=== PATIENT | female | born 2005 | race Two or more races ===

== ENCOUNTER 2024-04-27 01:26 | Emergency (ER) | payer MEDICAID ==
[~2024-04-27] VITALS: Ht 144.8 cm; Wt 81.8 kg
[2024-04-27 01:50] VITALS: TEMP 97.8
[2024-04-27] MEDS: LORazepam 2 MG/ML VIAL IM ONE (03:06)
[2024-04-27 03:56] VITALS: BP 128/70; PULSE 107; RESP 16
== END 2024-04-27 03:57 | disposition home or self-care (01) ==
LOC: EMS 01:26
DX: F41.9 Anxiety disorder, unspecified (principal); T40.715A Adverse effect of cannabis, initial encounter; F12.90 Cannabis use, unspecified, uncomplicated; Y92.89 Other specified places as the place of occurrence of the external cause
CPT/HCPCS: 99283; 96372; J2060

== ENCOUNTER 2024-06-06 04:22 | Emergency (ER) | payer MEDICAID ==
[~2024-06-06] VITALS: Ht 144.8 cm; Wt 81.8 kg
[2024-06-06 04:31] VITALS: BP 135/72; PULSE 82; RESP 16; TEMP 98.1
[2024-06-06 05:27] LABS: ANION GAP 6 mmol/L (8-16); BASOPHILS % (AUTO) 0.5 % (0.0-2.0); CALCIUM, TOTAL 8.7 mg/dL (8.8-10.5); CARBON DIOXIDE 28 mmol/L (22-29); CHLORIDE 103 mmol/L (98-107); CREATININE 0.88 mg/dL (0.60-1.30); EOSINOPHILS % (AUTO) 0.9 % (1.0-6.0); GLOMERULAR FILTR. RATE CALC > 60 mL/min (>60); GLUCOSE,RANDOM 107 mg/dL (70-110); HEMATOCRIT 43.5 % (36-46); HEMOGLOBIN 14.6 g/dL (12.0-16.0); LYMPHOCYTES # (AUTO) 2.8 K/uL (1.0-4.8); MEAN CORPUSCULAR HEMOGLOBIN 29.4 pg (26.0-34.0); MEAN CORPUSCULAR HGB CONC 33.5 G/dL (31.0-37.0); MEAN CORPUSCULAR VOLUME 88 fL (80-100); MONOCYTES # (AUTO) 0.7 K/uL (0.1-1.0); MONOCYTES % (AUTO) 6.8 % (2.0-9.0); NEUTROPHILS # (AUTO) 6.2 K/uL (1.8-7.7); NEUTROPHILS % (AUTO) 62.8 % (40.0-70.0); PLATELET COUNT (AUTO) 312 K/uL (150-450); POTASSIUM 4.2 mmol/L (3.5-5.1); RED BLOOD CELL COUNT(AUTO) 4.97 MIL/uL (4.00-5.20); RED CELL DISTRIBUTION WIDTH 13.5 % (11.5-14.5); SODIUM SERUM 137 mmol/L (136-145); UREA NITROGEN, BLOOD 15 mg/dL (7-18); WHITE BLOOD COUNT (AUTO) 9.8 K/uL (4.5-11.0)
== END 2024-06-06 06:29 | disposition left against medical advice (07) ==
LOC: EMS 04:23
DX: F41.9 Anxiety disorder, unspecified (principal); Z53.21 Procedure and treatment not carried out due to patient leaving prior to being seen by health care provider
CPT/HCPCS: 36415; 80048; 85025; 84703; G0480